=== PATIENT | male | born 1950 | race Caucasian/White ===

== ENCOUNTER 2019-01-09 08:38 | Day surgery (SDC) | payer BC, MEDICARE ==
[~2019-01-09 08:38] MED LIST: LIDOCAINE HCL 1% MPF 30 SOL ONE; PROPOFOL 500 MG/50 ML EMU IV ONE
[2019-01-09 10:58] VITALS: BP 129/89; PULSE 65; RESP 20; TEMP 97.6; O2SAT 97
== END 2019-01-09 11:15 | disposition home or self-care (01) | DRG 951 ==
LOC: SURG 08:38
PROVIDERS: ATTEND Surgery
DX: Z12.11 Encounter for screening for malignant neoplasm of colon (principal); K57.32 Diverticulitis of large intestine without perforation or abscess without bleeding; Z80.0 Family history of malignant neoplasm of digestive organs
CPT/HCPCS: J2001; J2704